=== PATIENT | female | born 1965 | race Caucasian/White ===

== ENCOUNTER 2016-11-21 06:56 | Day surgery (SDC) | payer MEDICARE, OTHER ==
[~2016-11-21] VITALS: Ht 162.6 cm; Wt 74.5 kg
[2016-11-21] MEDS ORDERED: IOHEXOL 300 MG/ML 50 ML BTL (for RAD DIAG) IT ONE (06:57)
[2016-11-21 07:17] VITALS: BP 157/112; PULSE 76; RESP 20; TEMP 98.7; O2SAT 97
[2016-11-21] MEDS ORDERED: LACTATED RINGER'S 1000 ML INJ 1,000 ML IV SCH (07:30)
[2016-11-21] MEDS ORDERED: DIAZEPAM 5 MG TAB PO SCH (07:30)
[2016-11-21] MEDS ORDERED: DILA4TAB2 PO (07:59)
[2016-11-21] MEDS ORDERED: MSIR30 PO (07:59)
[2016-11-21] MEDS ORDERED: ESTR.625 PO (07:59)
[2016-11-21] MEDS ORDERED: TRAZ100T6 PO (07:59)
[2016-11-21] MEDS ORDERED: FIORINAL2 PO (07:59)
[2016-11-21] MEDS ORDERED: CLON1 PO (07:59)
[2016-11-21] MEDS ORDERED: SOMA350T PO (07:59)
[2016-11-21 08:01] LABS: APTT (PATIENT) 26.9 SEC (24.3-30.1); PROTHROMBIN TIME - PATIENT 10.9 SEC (9.8-11.6)
[2016-11-21 08:03] LABS: AUTOMATED NEUTROPHIL # 1.9 TH/MM3 (1.8-7.7); BASOPHIL % 0.7 % (0.0-2.0); EOSINOPHIL # 0.1 TH/MM3 (0-0.4); EOSINOPHIL % 2.2 % (0.0-4.0); HEMATOCRIT 33.3 % (35.0-46.0); HEMO FLAGS DIFF FINAL; LYMPH % 52.3 % (9.0-44.0); LYMPHOCYTE # 2.7 TH/MM3 (1.0-4.8); MEAN CELL VOLUME 85.1 FL (80.0-100.0); MEAN CORPUSCULAR HEMOGLOBIN 28.5 PG (27.0-34.0); MEAN CORPUSCULAR HGB CONC 33.5 % (32.0-36.0); MONO % 8.8 % (0.0-8.0); PLATELET COUNT 224 TH/MM3 (150-450); RED BLOOD COUNT 3.92 MIL/MM3 (4.00-5.30); RED CELL DISTRIBUTION WIDTH 13.7 % (11.6-17.2); WHITE BLOOD COUNT 5.2 TH/MM3 (4.0-11.0)
[2016-11-21 08:08] LABS: BICARBONATE 31.1 MEQ/L (21.0-32.0); POTASSIUM 4.1 MEQ/L (3.5-5.1)
[2016-11-21] MEDS ORDERED: LORazepam 2 MG/ML VIAL IV PUSH ONE (08:30)
[2016-11-21] MEDS ORDERED: ONDANSETRON HCL 4 MG/2 ML VIAL IV PUSH ONE (08:30)
[2016-11-21] MEDS ORDERED: MORPHINE SULFATE 8 MG/ML INJ ONE (10:00)
[2016-11-21] MEDS ORDERED: HYDROmorphone HCL PF 2 MG/ML VIAL ONE (10:23)
--- NOTE | 2016-11-21 10:32 | RADRPT ---
EXAM DATE/TIME: 11/21/2016 09:26 [facility] COMPARISON: No previous studies available for comparison. INDICATIONS : Patient with history of cervical radiculopathy in need of myelogram. MEDICAL HISTORY : GERD, Graves disease, Migraines, Kyphosis, L1 Vertebral fracture, Osteopenia SURGICAL HISTORY : T4-L4 fusion, L2-S1 laminectomies and fusion, Spinal cord stimulator, Transthoracic vertebral corpect tyler, Thoracolumbar vertebral corpectomy, L1 Kyphoplasty ENCOUNTER: Initial ACUITY: 3 months PAIN SCORE: 8/10 LOCATION: Neck and upper back LUMBAR PUNCTURE TIME: 0950 hours FLUORO TIME: 4.3 minutes IMAGE SERIES: 2 CONTRAST: 10 cc Omnipaque (iohexol) 300 ACCESS LEVEL: L1-2 PROCEDURE : 1. Fluoroscopic guided lumbar puncture. 2. Instillation of intrathecal contrast. 3. Cervical myelogram. The risks, benefits and alternatives to the procedure were explained and verbal and written consent w as obtained. The site was prepped in sterile fashion. Full sterile technique was used, including ca p, mask, sterile gloves and gown and a large sterile sheet. Hand hygiene and 2% chlorhexidine and/or betadine/alcohol prep was utilized per protocol for cutaneous antisepsis. The skin and subcutaneous tissues were infiltrated with local anesthetic solution. With fluoroscopic guidance the lumbar thecal sac was punctured at level above and a diagnostic quanti ty of contrast is present in the subarachnoid space. Under fluoroscopic guidance contrast was moved t o the cervical region. The patient tolerated procedure well and there were no complications. CT scan is to be performed for further evaluation. CONCLUSION: Uncomplicated cervical myelogram as above. CT scan is to be performed for further evaluation. Tristen Ng MD on November 21, 2016 at 10:30 Board Certified Radiologist. This report was verified electronically.
[2016-11-21 10:40] VITALS: BP 148/96; PULSE 54; RESP 18; TEMP 97.7; O2SAT 97
[2016-11-21] MEDS ORDERED: ACETAMINOPHEN 325 MG TAB PO PRN (11:15)
[2016-11-21] MEDS ORDERED: oxyCODONE/ACETAMINOPHEN 5 MG/325 MG TAB PO PRN (11:15)
[2016-11-21] MEDS ORDERED: ONDANSETRON HCL 4 MG/2 ML VIAL IV PUSH PRN (11:15)
--- NOTE | 2016-11-21 11:15 | PD.RAD ---
Post Procedure Progress Note Pre Procedure Diagnosis: (1) Spinal stenosis Post Procedure Diagnosis: (1) Spinal stenosis Procedure Date: Nov 21, 2016 Supervising Radiologist: Tristen Ng Proceduralist/Assist: RT Robel(R), RT Jacques(R) Anesthesia: Local Plan of Activity Patient to Unit: [facility] Patient Condition: Good See PACS Report for procedural detail/treatment Spinal Procedure Myelogram L1-L2 Fluid Description: Tristen Caba MD Nov 21, 2016 11:15
--- NOTE | 2016-11-21 11:34 | RADRPT ---
EXAM DATE/TIME: 11/21/2016 10:29 [facility] COMPARISON: No previous studies available for comparison. INDICATIONS : Post myelogram. Radiculopathy. RADIATION DOSE: 33.83 CTDIvol (mGy) CT of thecervical spine was performed post myelogram. MEDICAL HISTORY : None SURGICAL HISTORY : Appendectomy. spinal fusion T4-S1 ENCOUNTER: Initial ACUITY: 1 day PAIN SCALE: 9/10 LOCATION: Bilateral neck TECHNIQUE: Volumetric scanning of the cervical spine was performed. Multiplanar reconstructions in the sagittal, coronal and oblique axial planes were performed. Using automated exposure control and adjustment o f the mA and/or kV according to patient size, radiation dose was kept as low as reasonably achievable to obtain optimal diagnostic quality images. DICOM format image data is available electronically f or review and comparison. FINDINGS: VERTEBRAE: Patient status post cervical myelogram. At no prior studies for comparison. Alignment is anatomic. C2-C3: Minimal uncinate ridging is present no significant spinal stenosis or neural foramina encroachment C3-C4: Minimal uncinate ridging is present slightly more prominent on the right than the left and minimal ri ght-sided neural foramina encroachment. C4-C5: Moderate Minimal uncinate ridging impinging on the anterior thecal space There is moderate bilatera l neural foramina encroachment; spinal stenosis is moderate. C5-C6: Moderate to severe uncinate ridging. This is more prominent on the right than the left. This imping es on the anterior thecal space and touches the cord. There is moderate bilateral neural foramina en croachment worse on the right than the left. Spinal stenosis is moderate to severe C6-C7: Minimal uncinate ridging is present with minimal bilateral neural foramina encroachment or spinal ana paula nosis is mild. C7-T1 is normal level. CONCLUSION: Radiographic significant spinal stenosis at C5-C6 followed by C4-C5. Solo Floyd MD FACR on November 21, 2016 at 11:27 Board Certified Radiologist. This report was verified electronically.
[2016-11-21 14:15] VITALS: BP 145/92; PULSE 65; RESP 18; O2SAT 98
== END 2016-11-21 14:35 | disposition home or self-care (01) ==
LOC: HROP 06:56 → HRIP 07:00 → HROP 14:35
DX: M54.12 Radiculopathy, cervical region (principal); K21.9 Gastro-esophageal reflux disease without esophagitis; M48.02 Spinal stenosis, cervical region
CPT/HCPCS: 61055; 72125; 77003; 80048; 85025; 85610; 85730; J1170; J2270; Q9967

== ENCOUNTER → 2016-11-26 | Day surgery (SDC) | payer MEDICARE, OTHER ==
[~2016-11-26] VITALS: Ht 160 cm; Wt 74.5 kg
[~2016-11-26] MED LIST: *PROMETHAZINE 25 MG/ML VIAL PERIprocedural use ONLY ONE; CLON1 PO; DILA4TAB2 PO; ESTR.625 PO; FIORINAL2 PO; HYDROmorphone HCL PF 1 MG/ML VIAL IV ONE; HYDROmorphone HCL PF 1 MG/ML VIAL ONE; LACTATED RINGER'S 1000 ML INJ 500 ML IV ONE; LIDOCAINE HCL 4% PF 5 ML AMP OTHER ONE; MIDAZOLAM HCL 5 MG/5 ML VIAL IV ONE; MIDAZOLAM HCL 5 MG/5 ML VIAL ONE; MSIR30 PO; PROMETHAZINE INJ 25 MG/ML VIAL IM ONE; SOMA350T PO; TRAZ100T6 PO
[2016-11-26 14:06] VITALS: BP 117/70; PULSE 63; RESP 16; TEMP 98.5; O2SAT 98
== END | disposition home or self-care (01) ==
LOC: HSDC 09:08
PROVIDERS: ATTEND Anesthesiology
DX: G97.1 Other reaction to spinal and lumbar puncture (principal)
CPT/HCPCS: 62273; J1170; J2250; J2550; J7120